=== PATIENT | female | born 1975 | race Caucasian/White ===

== ENCOUNTER 2020-04-02 10:17 | Emergency (ER) | payer SELFPAY ==
[2020-04-02] MEDS ORDERED: Fluorescein Opthalmic Strip ONE ×2 (10:35→11:01)
[2020-04-02] MEDS ORDERED: Proparacaine 0.5% Opth 15 ML BOT ONE (10:35)
[2020-04-02] MEDS ORDERED: Erythromycin Base 0.5% Oint 1 GM TUBE ONE ×2 (10:36→11:03)
== END 2020-04-02 11:20 | disposition home or self-care (01) ==
LOC: ERS 10:17
DX: H18.822 Corneal disorder due to contact lens, left eye (principal); F17.210 Nicotine dependence, cigarettes, uncomplicated
CPT/HCPCS: 99283

== ENCOUNTER 2023-01-28 11:48 | Emergency (ER) | payer OTHER, SELFPAY ==
[2023-01-28] MEDS ORDERED: Lidocaine 1% w/Epinephrine 1:100K 20 ML VIAL ONE (12:57)
[2023-01-28] MEDS ORDERED: TETANUS, DIPHTHERIA TOX,ADULT (TDVAX) 0.5 ML VIAL IM ONE (13:27)
[2023-01-28] MEDS ORDERED: Boostrix 0.5 ML (Tdap) VIAL (>/=7 yrs of age) ONE (13:31)
== END 2023-01-28 13:38 | disposition home or self-care (01) ==
LOC: ERS 11:48
DX: I83.892 Varicose veins of left lower extremity with other complications (principal); F17.210 Nicotine dependence, cigarettes, uncomplicated; Z23 Encounter for immunization
CPT/HCPCS: 12001; 90471; 90714; 90715

== ENCOUNTER 2025-04-21 22:35 | Inpatient (IN) | payer OTHER, SELFPAY ==
[2025-04-21 23:43] LABS: Hematocrit 34.3 % (36.0-47.0); Hemoglobin 11.1 g/dL (12.0-16.0); Mean Corpuscular Hemoglobin 27.4 pg (27.0-31.0); Mean Corpuscular Volume 84.7 fL (78.0-98.0); Platelet Count 373 10x3/uL (130-400); Red Blood Cell (RBC) Count 4.05 mill/uL (4.20-5.40); White Blood Cell (WBC) Count 26.05 10x3/uL (4.8-10.8)
[2025-04-21] MEDS ORDERED: Cefepime 2 GM VIAL ONE (23:50)
[2025-04-21 23:53] LABS: ALT (SGPT) 14 U/L (Less than 34); AST (SGOT) 24 U/L (11-34); Albumin 3.7 g/dL (3.1-4.5); Alkaline Phosphatase 96 U/L (40-110); Anion Gap 12 mmol/L (10-20); Anisocytosis SLIGHT = 6-15 cells HPF (0-5); BUN (Urea Nitrogen) 21 mg/dL (7.0-18.7); Bilirubin, Total 0.3 mg/dL (0.3-1.2); Calc. Creatinine Clearance 0 mL/min (70-130); Calcium 9.1 mg/dL (7.8-10.44); Carbon Dioxide 25 mmol/L (22-29); Chloride 96 mmol/L (98-107); Globulin 4.1 g/dL (2.4-3.5); Glucose 110 mg/dL (70-105); Macrocytosis SLIGHT = 6-15 cells HPF (0-5); Ovalocytes SLIGHT = 2-5 cells HPF (0-1); Platelet Adequacy Comment Platelets Normal; Potassium 3.5 mmol/L (3.5-5.1); Sodium 129 mmol/L (136-145)
[2025-04-22] MEDS ORDERED: Senokot S 8.6-50 MG TAB PO PRN (00:32)
[2025-04-22] MEDS ORDERED: Calcium Carbonate 500 MG ChewTAB PO PRN (00:32)
[2025-04-22] MEDS ORDERED: Melatonin 3 MG TAB PO PRN (00:32)
[2025-04-22] MEDS ORDERED: Guaifenesin DM 100-10/5 ML UDCUP PO PRN (00:32)
[2025-04-22] MEDS ORDERED: Electrolyte Replacement Protocol 1 EACH FS SCH (00:45)
[2025-04-22] MEDS ORDERED: Magnesium Sulfate In Water 4 GM in Premix 1 BAG IVPB PRN (01:00)
[2025-04-22] MEDS ORDERED: Potassium Chloride 20 MEQ in Premix 1 BAG IVPB PRN (01:00)
[2025-04-22 03:26] VITALS: BMI 25.8
[2025-04-22 05:16] LABS: Hematocrit 31.4 % (36.0-47.0); Hemoglobin 10.5 g/dL (12.0-16.0); Mean Corpuscular Hemoglobin 27.9 pg (27.0-31.0); Mean Corpuscular Volume 83.5 fL (78.0-98.0); Platelet Count 375 10x3/uL (130-400); Red Blood Cell (RBC) Count 3.76 mill/uL (4.20-5.40); White Blood Cell (WBC) Count 25.71 10x3/uL (4.8-10.8)
[2025-04-22 05:18] LABS: ALT (SGPT) 13 U/L (Less than 34); AST (SGOT) 18 U/L (11-34); Albumin 3.2 g/dL (3.1-4.5); Alkaline Phosphatase 92 U/L (40-110); Anion Gap 11 mmol/L (10-20); BUN (Urea Nitrogen) 18 mg/dL (7.0-18.7); Bilirubin, Total 0.2 mg/dL (0.3-1.2); Calc. Creatinine Clearance 111 mL/min (70-130); Calcium 8.6 mg/dL (7.8-10.44); Carbon Dioxide 23 mmol/L (22-29); Chloride 101 mmol/L (98-107); Globulin 3.5 g/dL (2.4-3.5); Glucose 114 mg/dL (70-105); Magnesium 1.8 mg/dL (1.6-2.6); Potassium 4.3 mmol/L (3.5-5.1); Sodium 131 mmol/L (136-145)
[2025-04-22] MEDS: HYDROcodone/Acetaminophen 5/325 mg Tablet PO SCH (06:19)
[2025-04-22] MEDS: PHOS-NAK 1 PKT PACK PO PRN (06:20)
[2025-04-22 07:00] LABS: Anisocytosis SLIGHT = 6-15 cells HPF (0-5); Burr Cells SLIGHT = 2-5 cells HPF (0-1); Macrocytosis SLIGHT = 6-15 cells HPF (0-5); Ovalocytes SLIGHT = 2-5 cells HPF (0-1); Platelet Adequacy Comment Platelets Normal; Polychromasia SLIGHT = 2-3 cells HPF (0-2); Smudge Cells 2.0 %
[2025-04-22] MEDS: Acetaminophen 325 MG TAB PO PRN (08:01)
[2025-04-22] MEDS: Enoxaparin 40 MG (0.4 mL) SYRINGE SC SCH (08:01)
[2025-04-22] MEDS: FLU (Fluarix Triv) 25-26 (6MOS UP)/PF 45 MCG/0.5 ML Syringe IM ONE (13:40)
[2025-04-22] MEDS: HYDROcodone/Acetaminophen 5/325 mg Tablet PO PRN (13:58)
[2025-04-22] MEDS: Azithromycin 250 MG TAB PO SCH (16:17)
[2025-04-23 05:24] LABS: Anion Gap 6 mmol/L (10-20); BUN (Urea Nitrogen) 12 mg/dL (7.0-18.7); Calc. Creatinine Clearance 138 mL/min (70-130); Calcium 8.2 mg/dL (7.8-10.44); Carbon Dioxide 27 mmol/L (22-29); Chloride 107 mmol/L (98-107); Glucose 110 mg/dL (70-105); Potassium 3.7 mmol/L (3.5-5.1); Sodium 136 mmol/L (136-145)
[2025-04-23 07:50] LABS: #Basophils 0.04 10x3/uL (0.0-0.2); #Eosinophils 0.11 10x3/uL (0.0-0.7); #Monocytes 1.59 10x3/uL (0.11-0.59); #Neutrophils 10.74 10x3/uL (1.40-6.50); %Basophils 0.3 % (0.0-1.0); %Eosinophils 0.8 % (0.0-10.0); %Lymphocytes 9.9 % (21.0-51.0); %Monocytes 11.4 % (0.0-10.0); %Neutrophils 77.1 % (42.0-75.0); Hematocrit 29.5 % (36.0-47.0); Hemoglobin 9.2 g/dL (12.0-16.0); Mean Corpuscular Hemoglobin 27.1 pg (27.0-31.0); Mean Corpuscular Volume 86.8 fL (78.0-98.0); Platelet Count 361 10x3/uL (130-400); Red Blood Cell (RBC) Count 3.40 mill/uL (4.20-5.40); White Blood Cell (WBC) Count 13.93 10x3/uL (4.8-10.8)
[2025-04-23] MEDS: HYDROcodone/Acetaminophen 10/325 mg Tablet PO PRN (16:59)
[2025-04-23] MEDS: Transdermal Patch Removal TOP SCH (21:30)
[2025-04-24 04:38] LABS: #Basophils 0.06 10x3/uL (0.0-0.2); #Eosinophils 0.37 10x3/uL (0.0-0.7); #Monocytes 1.15 10x3/uL (0.11-0.59); #Neutrophils 6.04 10x3/uL (1.40-6.50); %Basophils 0.6 % (0.0-1.0); %Eosinophils 4.0 % (0.0-10.0); %Lymphocytes 17.9 % (21.0-51.0); %Monocytes 12.3 % (0.0-10.0); %Neutrophils 64.8 % (42.0-75.0); Hematocrit 29.2 % (36.0-47.0); Hemoglobin 9.1 g/dL (12.0-16.0); Mean Corpuscular Hemoglobin 27.0 pg (27.0-31.0); Mean Corpuscular Volume 86.6 fL (78.0-98.0); Platelet Count 395 10x3/uL (130-400); Red Blood Cell (RBC) Count 3.37 mill/uL (4.20-5.40); White Blood Cell (WBC) Count 9.33 10x3/uL (4.8-10.8)
[2025-04-24 04:54] LABS: Anion Gap 11 mmol/L (10-20); BUN (Urea Nitrogen) 13 mg/dL (7.0-18.7); Calc. Creatinine Clearance 127 mL/min (70-130); Calcium 8.4 mg/dL (7.8-10.44); Carbon Dioxide 27 mmol/L (22-29); Chloride 107 mmol/L (98-107); Glucose 111 mg/dL (70-105); Potassium 3.9 mmol/L (3.5-5.1); Sodium 141 mmol/L (136-145)
[2025-04-24 07:51] VITALS: BP 107/66; TEMP 97.9
== END 2025-04-24 11:54 | disposition home or self-care (01) | DRG 872 ==
LOC: ERS 22:35 → 2NO 04-22 00:32
PROVIDERS: ADMIT Internal Medicine; ATTEND Internal Medicine
DX: A41.9 Sepsis, unspecified organism (principal); L03.115 Cellulitis of right lower limb; E83.39 Other disorders of phosphorus metabolism; Z98.890 Other specified postprocedural states; Z90.710 Acquired absence of both cervix and uterus; Z90.81 Acquired absence of spleen; Z88.8 Allergy status to other drugs, medicaments and biological substances; Z88.6 Allergy status to analgesic agent; Z23 Encounter for immunization
CPT/HCPCS: 36415; 80048; 80053; 83605; 83735; 84100; 85025; 87040; 87081; 96365; 96366; 96368; 96375; J0295; J0692; J1650; J3010; J3373; J7030